=== PATIENT | male | born 1975 | race Caucasian/White ===

== ENCOUNTER 2016-09-04 16:26 | Emergency (ER) | payer OTHER ==
[~2016-09-04] VITALS: Ht 175.3 cm; Wt 78.9 kg
[2016-09-04 16:36] VITALS: Ht 175.3 cm; Wt 78.9 kg
[2016-09-04] MEDS ORDERED: ACET-1256 PO (16:49)
[2016-09-04] MEDS ORDERED: CHOL1TAB42 PO (16:49)
[2016-09-04] MEDS ORDERED: NAPR1TAB9 PO (16:49)
[2016-09-04] MEDS ORDERED: PENI-82 PO (17:09)
[2016-09-04] MEDS ORDERED: HYDR-5688 PO (17:09)
--- NOTE | 2016-09-04 17:11 | EMERGENCY ROOM VISIT NOTE ---
ED Visit Note First contact with patient: 17:01 This Patient was discussed with the physician Thermospray Operator, Adriana Cabrera PA-C. The pertinent historical and physical exam findings were confirmed. I agree with the studies ordered and with the interpretations of these studies. I agree with the disposition and care plan.
--- NOTE | 2016-09-04 17:11 | EMERGENCY ROOM VISIT NOTE ---
ED Visit Note First contact with patient: 16:45 CHIEF COMPLAINT: Toothache HISTORY OF PRESENT ILLNESS: This 40-year-old male patient presented to the emergency department ambulatory with a progressive toothache for past for days. The patient believes it is coming from right lower molar. The pain is now steady and severe and radiates to the face. The patient does not a dentist appointment set up and states he has contacted them but they were out of the office for the long weekend. They rate their pain a 8/10 and the ibuprofen and Tylenol they have been taking has not relieved the pain. Denies facial swelling or fever. The patient denies any discharge from the mouth. REVIEW OF SYSTEMS: A 6 system review of systems was completed with positives and pertinent negatives listed in the HPI. ALLERGIES: No known drug allergies MEDICATIONS: Patient denies PMH: Patient denies SOCIAL HISTORY: Patient does not smoke but does use smokeless tobacco PHYSICAL EXAM: Vitals are noted on the nurse's note and reviewed by myself. Vital signs stable. The patient is afebrile. GENERAL: This is a 40-year-old male, in no acute distress, nondiaphoretic, well-developed well-nourished. Mouth: The right lower tooth is very carious and the gum is swollen and tender around it, without any discharge or signs of an abscess. 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 The remainder of the pharynx and tonsils are without erythema, edema, or exudate. The airway is patent. There is no facial swelling, cervical or submandibular lymphadenopathy. The patient appears uncomfortable and in pain. The patient has overall and dental hygiene. ED COURSE: The patient was seen and examined. Previous visits were reviewed. The patient does not have a fever. He is nontoxic in appearance. The patient has some mild swelling to the gum. He also has some leukoplakia. He does have tenderness to palpation of the tooth. The patient will be placed on Pen-Vee K and given [place]. The patient was advised to stop using the chewing tobacco. I did recommend that he follow up with otolaryngology once the infection is treated given the leukoplakia. The patient was found to be hypertensive. He is asymptomatic in regard to the hypertension. He is in pain from the dental infection and this may be associated with the hypertension. He was encouraged to follow up with a family doctor and monitor his blood pressure. He should return with any worsening symptoms. The patient was also seen and examined by who agrees with the assessment and treatment plan. Current/Historical Medications Scheduled Acetaminophen (Tylenol), 1-2 TABS PO PRN UD Cholecalciferol (Vitamin D), 1 TAB PO 4XWK Penicillin V Potassium (Veetids), 500 MG PO QID Scheduled PRN Hydrocodone/Acetaminophen 5MG/325MG ([place] 5MG/325MG), 1 TABLET PO Q4H PRN for Pain Naproxen (Aleve), 220 MG PO BID PRN for Pain Vital Signs Date Time Temp Pulse Resp B/P Pulse Ox O2 Delivery O2 Flow Rate FiO2 09/04/16 17:45 36.5 57 18 141/98 97 09/04/16 17:43 57 18 141/98 97 Room Air 09/04/16 17:19 36.5 58 18 150/109 97 Room Air 09/04/16 16:36 65 18 195/111 99 Room Air Departure Information Impression Primary Impression: Dental caries Dispostion Home / Self-Care Condition GOOD Prescriptions Hydrocodone/Acetaminophen 5MG/325MG ([place] 5MG/325MG) Tab 1 TABLET PO Q4H Y for Pain, #18 TAB For Initial Treatment Prov: Lavern Cabrera PA-C 09/04/16 Penicillin V Potassium (Veetids) 500 Mg Tab 500 MG PO QID for 7 Days, #28 TAB Prov: Lavern Cabrera PA-C 09/04/16 Referrals No Doctor, Assigned (PCP) Al Hong D.O. Patient Instructions My [facility] Additional Instructions Pen-Vee K 4 times daily for 10 days.[place] one tablet every 6 hours if needed for worse pain. Do not drink or drive while taking [place] and do not take with Tylenol. Followup with a dentist for definitive management of your tooth. Return with high fevers, worsening pain or swelling. Contact ENT for a follow up appointment for further evaluation and management Return with worsening symptoms Monitor your blood pressure and follow up with your family doctor
[2016-09-04 17:45] VITALS: BP 141/98; PULSE 57; TEMP 36.5; O2SAT 97
== END 2016-09-04 17:46 | disposition home or self-care (01) ==
LOC: C.EDB 16:27 → C.EDD 17:46
DX: K02.9 Dental caries, unspecified (principal); F17.200 Nicotine dependence, unspecified, uncomplicated